=== PATIENT | male | born 2000 | race Caucasian/White ===

== ENCOUNTER 2021-11-01 14:23 | Emergency (ER) | payer OTHER ==
[2021-11-01] MEDS ORDERED: IBUPROFEN600 MG PO (16:25)
== END 2021-11-01 16:56 | disposition home or self-care (01) ==
LOC: FER 14:23
DX: R07.9 Chest pain, unspecified (principal); R06.02 Shortness of breath; M54.6 Pain in thoracic spine
CPT/HCPCS: 71250; 93005